=== PATIENT | male | born 1970 | race Caucasian/White ===

== ENCOUNTER 2021-05-04 08:57 | Day surgery (SDC) | payer BC ==
[~2021-05-04] VITALS: Ht 170.2 cm; Wt 123.7 kg
--- NOTE | 2021-05-04 09:50 | NUR ---
PATIENT ADMITTED INTO ENDO UNIT WITH STEADY GAIT. PATIENT IS ALERT AND ORIENTED X 4. CONSENT EXPLAINED AND PATIENT SIGNED. ASSESSMENT COMPLETED. LUNGS CTA. HEART SOUNDS S1S2 AND REGULAR. BOWEL SOUNDS HEARD. PEDAL PULSES+2. IS IN THE WAITING ROOM. CALL LIGHT EXPLAINED AND PATIENT VOICED UNDERSTANDING.
[2021-05-04 09:52] VITALS: BP 139/85; PULSE 78; TEMP 97.6
[2021-05-04] MEDS ORDERED: CORGARD20 MG PO (10:10)
[2021-05-04] MEDS ORDERED: ZESTORETIC 12.51 TAB PO (10:10)
[2021-05-04] MEDS ORDERED: ASPIRIN E.C. 8181 MG PO (10:11)
[2021-05-04 11:10] VITALS: BP 124/68; PULSE 72; TEMP 98
--- NOTE | 2021-05-04 11:10 | NUR ---
PATIENT BROUGHT BACK TO BAY 5 VIA CART. AMBULATED TO CHAIR. PLACED ON MONITORS, VITAL SIGNS STABLE. PATIENT IS ALERT, AT BEDSIDE TO DRIVE HOME. REPORT RECIEVED FROM DENISE LEON, ALL QUESTIONS ANSWERED. REQUESTS WATER AND JELLO. CALL FRAGA WITHIN REACH. WILL CONTINUE TO MONITOR.
[2021-05-04 11:25] VITALS: BP 121/92; PULSE 67
--- NOTE | 2021-05-04 11:25 | NUR ---
TOLERATING FOOD AND DRINK WITHOUT DIFFICULTY. DR. AGUILAR AT BEDSIDE TO DISCUSS RESULTS.
[2021-05-04 11:40] VITALS: BP 121/87; PULSE 64
--- NOTE | 2021-05-04 11:40 | NUR ---
PATIENT STATES HE FEELS READY TO GO HOME NOW. DENIES PAIN OR NAUSEA. IV PULLED FROM LEFT HAND, INTACT. TO GET DRESSED AT THIS TIME.
--- NOTE | 2021-05-04 11:50 | NUR ---
DISCHARGE INSTRUCTIONS REVIEWED WITH PATIENT AND FAMILY MEMBER. ALL QUESTIONS ANSWERED. PATIENT BROUGHT DOWN TO LOBBY VIA WHEEL CHAIR. TO DRIVE HOME. ALL BELONGINGS IN HAND.
== END 2021-05-04 11:50 | disposition home or self-care (01) ==
LOC: SDCO 08:57
DX: Z12.11 Encounter for screening for malignant neoplasm of colon (principal); K57.30 Diverticulosis of large intestine without perforation or abscess without bleeding; I10 Essential (primary) hypertension; G47.33 Obstructive sleep apnea (adult) (pediatric); Z20.822 Contact with and (suspected) exposure to COVID-19
CPT/HCPCS: J7120